=== PATIENT | female | born 2000 | race Caucasian/White ===

== ENCOUNTER → 2019-11-04 | Outpatient (CLI) | payer OTHER ==
[~2019-11-04] MED LIST: CEPH500 PO; HYDACE5 PO; HYDHCL25 PO; LIDO2L MM; Macrobid 100 M100 MG PO; PRENATAL TABLE1 EAC2 PO; Pyridium100 MG PO; Sudogest30 MG PO; Zofran Odt4 MG PO; Zofran Odt8 MG SL
== END | disposition home or self-care (01) ==
LOC: LAB 12:11 → LAB SHORT 12:11
DX: Z34.03 Encounter for supervision of normal first pregnancy, third trimester (principal)
CPT/HCPCS: 87081; 87653

== ENCOUNTER → 2022-11-26 | Outpatient (CLI) | payer OTHER ==
[~2022-11-26] MED LIST changes: +IBUP800 PO
== END ==
LOC: LAB SHORT 16:41 → LAB 16:41
DX: N39.0 Urinary tract infection, site not specified (principal)
CPT/HCPCS: 87086